=== PATIENT | female | born 1970 | race Caucasian/White ===

== ENCOUNTER → 2016-10-25 | Outpatient (CLI) | payer OTHER | LOC: RAD 14:05 | DX: M54.2 Cervicalgia (principal); M54.9 Dorsalgia, unspecified | CPT/HCPCS: 71020; 72050; 72072; 72110 ==

== ENCOUNTER → 2017-02-04 | Outpatient (CLI) | payer OTHER | LOC: RAD 15:03 | DX: M25.562 Pain in left knee (principal) | CPT/HCPCS: 73564 ==

== ENCOUNTER → 2017-02-13 | Outpatient (CLI) | payer OTHER | LOC: RAD 11:04 | DX: M25.521 Pain in right elbow (principal) | CPT/HCPCS: 73080 ==

== ENCOUNTER → 2020-08-29 | Outpatient (CLI) | payer OTHER ==
[~2020-08-29] MED LIST: PERCOCET 5/325 T1 EA PO
== END ==
LOC: EXRD 13:58
DX: M54.2 Cervicalgia (principal); M54.5 Low back pain; M54.6 Pain in thoracic spine; R05 Cough; M25.562 Pain in left knee; M25.561 Pain in right knee; M51.34 Other intervertebral disc degeneration, thoracic region; M47.814 Spondylosis without myelopathy or radiculopathy, thoracic region
CPT/HCPCS: 71046; 72040; 72070; 72100; 73564

== ENCOUNTER 2021-04-03 18:45 | Emergency (ER) | payer OTHER ==
[2021-04-03 19:20] LABS: HEMOGLOBIN 13.6 gm/dl (12.3-15.3); RED BLOOD COUNT 4.69 M/UL (4.00-5.10); WHITE BLOOD COUNT 5.8 K/UL (4.5-11.0)
[2021-04-03 19:41] LABS: BUN/CREATININE RATIO 11 (0-10)
== END 2021-04-03 23:40 | disposition home or self-care (01) ==
LOC: ER1 18:45
PROVIDERS: Physician Assistant
DX: R07.89 Other chest pain (principal); R68.84 Jaw pain; E87.6 Hypokalemia; F41.9 Anxiety disorder, unspecified; I10 Essential (primary) hypertension; J45.909 Unspecified asthma, uncomplicated; Z90.89 Acquired absence of other organs; Z79.899 Other long term (current) drug therapy
CPT/HCPCS: 70110; 71045; 80053; 82550; 82553; 83874; 84484; 85025; 85652; 86140; 93005; 99284

== ENCOUNTER 2021-12-26 17:37 | Emergency (ER) | payer OTHER ==
[2021-12-26 18:57] LABS: RED BLOOD COUNT 4.84 M/UL (4.00-5.10); WHITE BLOOD COUNT 5.5 K/UL (4.5-11.0)
[2021-12-26 19:13] LABS: BUN/CREATININE RATIO 18 (0-10)
[2021-12-26] MEDS ORDERED: K-TAB ER10 MEQ PO (21:33)
== END 2021-12-26 22:03 | disposition home or self-care (01) ==
LOC: ER1 17:37
PROVIDERS: Preventive Medicine Occupational Medicine
DX: B34.9 Viral infection, unspecified (principal); E87.6 Hypokalemia; Z20.822 Contact with and (suspected) exposure to COVID-19
CPT/HCPCS: 0240U; 71045; 80053; 80307; 81001; 82550; 82553; 83605; 83690; 84484; 85025; 85652; 86140; 87040; 87086; 96374; 96375; 99285; G0480; J0696; J2405

== ENCOUNTER → 2022-05-14 | Outpatient (CLI) | payer OTHER ==
[~2022-05-14] MED LIST changes: +K-TAB ER10 MEQ PO
== END ==
LOC: KOH-I 13:30
DX: M79.602 Pain in left arm (principal); M19.09 Primary osteoarthritis, other specified site
CPT/HCPCS: 73090